=== PATIENT | female | born 1995 | race Caucasian/White ===

== ENCOUNTER 2020-01-28 09:29 | Outpatient (CLI) | payer SELFPAY ==
--- NOTE | 2020-01-28 09:59 | ECG_ITS ---
Measurements Intervals [place] Rate: 51 P: 32 AR: 122 QRS: 76 QRSD: 91 T: 50 QT: 473 QTc: 438 Interpretive Statements SINUS BRADYCARDIA WITH SINUS ARRHYTHMIA INCOMPLETE RIGHT BUNDLE BRANCH BLOCK BORDERLINE ECG Electronically Signed On 01-28-2020 10:47:21 CDT by Ildefonso Martines D.O.
== END 2020-01-28 09:30 | disposition home or self-care (01) ==
DX: Z02.3 Encounter for examination for recruitment to armed forces (principal); I45.10 Unspecified right bundle-branch block
CPT/HCPCS: 93005